=== PATIENT | female | born 1985 | race Caucasian/White ===

== ENCOUNTER 2024-06-28 02:20 | Day surgery (SDC) | payer OTHER ==
[2024-06-28] MEDS ORDERED: IOVERSOL 320 MG/ML - 50 ML VIAL IV ONE (16:30)
[2024-06-28] MEDS ORDERED: GLUCAGON 1 MG VIAL IV ONE (16:30)
[2024-06-28] MEDS ORDERED: MORPHINE SULFATE 4 MG/ML VIAL IV ONE (19:00)
== END 2024-06-28 20:00 | disposition designated cancer center or children's hospital (05) ==
LOC: AMB-ERCP 02:20
PROVIDERS: ATTEND Internal Medicine
DX: K80.50 Calculus of bile duct without cholangitis or cholecystitis without obstruction (principal); Z91.013 Allergy to seafood; R10.9 Unspecified abdominal pain; R19.7 Diarrhea, unspecified